=== PATIENT | female | born 1985 | race Caucasian/White ===

== ENCOUNTER → 2017-03-11 | Outpatient (CLI) | payer MEDICAID ==
--- NOTE | 2017-03-11 12:51 | RADIOLOGY REPORT (SQ) ---
EXAM DESCRIPTION: FOOT RIGHT COMPLETE COMPLETED DATE/TIME: 03/11/2017 12:40 pm REASON FOR STUDY: SPRAIN OF UNSP. LIGAMENT OF RT ANKLE, /RT FOOT S93.401A SPRAIN OF UNSPECIFIED LIG AMENT OF RIGHT ANKLE, INIT S93.601A UNSPECIFIED SPRAIN OF RIGHT FOOT, INITIAL ENCOUNTER COMPARISON: None. NUMBER OF VIEWS: Three views. TECHNIQUE: AP, lateral and oblique radiographic images acquired of the right foot. LIMITATIONS: None. FINDINGS: MINERALIZATION: Normal. BONES: No acute fracture or dislocation. No worrisome bone lesions. JOINTS: No effusions. SOFT TISSUES: No soft tissue swelling. No foreign body. OTHER: No other significant finding. IMPRESSION: NEGATIVE STUDY OF THE RIGHT FOOT. NO RADIOGRAPHIC EVIDENCE OF ACUTE INJURY. TECHNICAL DOCUMENTATION: JOB ID: [id number] [employer]- All Rights Reserved
--- NOTE | 2017-03-11 12:51 | RADIOLOGY REPORT (SQ) ---
EXAM DESCRIPTION: ANKLE RIGHT COMPLETE COMPLETED DATE/TIME: 03/11/2017 12:39 pm REASON FOR STUDY: SPRAIN OF UNSP. LIGAMENT OF RT ANKLE, /RT FOOT S93.401A SPRAIN OF UNSPECIFIED LIG AMENT OF RIGHT ANKLE, INIT S93.601A UNSPECIFIED SPRAIN OF RIGHT FOOT, INITIAL ENCOUNTER COMPARISON: None. NUMBER OF VIEWS: Three views. TECHNIQUE: AP, lateral, and oblique radiographic images acquired of the right ankle. LIMITATIONS: None. FINDINGS: MINERALIZATION: Normal. BONES: No acute fracture or dislocation. No worrisome bone lesions. JOINTS: No effusions. SOFT TISSUES: No soft tissue swelling. No foreign body. OTHER: No other significant finding. IMPRESSION: NEGATIVE STUDY OF THE RIGHT ANKLE. NO RADIOGRAPHIC EVIDENCE OF ACUTE INJURY. TECHNICAL DOCUMENTATION: JOB ID: [id number] [employer]- All Rights Reserved
== END ==
LOC: OD 12:04
PROVIDERS: ATTEND Physician Assistant
DX: S93.401A Sprain of unspecified ligament of right ankle, initial encounter (principal); S93.601A Unspecified sprain of right foot, initial encounter; X50.1XXA Overexertion from prolonged static or awkward postures, initial encounter; Y93.9 Activity, unspecified; Y92.9 Unspecified place or not applicable; Y99.9 Unspecified external cause status

== ENCOUNTER 2018-11-09 10:30 | Emergency (ER) | payer MEDICAID ==
--- NOTE | 2018-11-09 11:24 | ER Document Report ---
ED General - General Chief Complaint: Vaginal Bleeding Stated Complaint: VAGINAL BLEEDING Time Seen by Provider: 11/09/18 11:14 Mode of Arrival: Ambulatory Information source: Patient Notes: Patient presents emergency department with complaints of heavy vaginal bleeding for the past 5 days. Reports she had her menses approximately 2 weeks ago. She started bleeding again this Tuesday. Reports she is going through a tampon pantiliner almost every hour. Denies fever vomiting diarrhea. Denies pain with void. Patient reports this has never happened to her before. Denies abdominal pain. Reports that when she woke up this morning the bleeding had tapered off but she contacted her provider and they told her to come to the emergency department. TRAVEL OUTSIDE OF THE [place] IN LAST 30 DAYS: No - HPI Onset: Other - tuesday Onset/Duration: Persistent Quality of pain: No pain Associated symptoms: None Exacerbated by: Denies Relieved by: Denies Similar symptoms previously: No Recently seen / treated by doctor: No - Related Data Allergies/Adverse Reactions: No Known Allergies Allergy (Verified 11/09/18 10:31) Past Medical History - General Information source: Patient Last Menstrual Period: 2 weeks ago - Social History Smoking Status: Unknown if Ever Smoked Cigarette use (# per day): Yes Chew tobacco use (# tins/day): No Frequency of alcohol use: None Drug Abuse: None Lives with: Family Family History: Reviewed & Not Pertinent Patient has suicidal ideation: No Patient has homicidal ideation: No - Past Medical History Cardiac Medical History: Reports: Hx Hypertension Renal/ Medical History: Denies: Hx Peritoneal Dialysis Past Surgical History: Reports: Hx Section, Hx Tubal Ligation Review of Systems - Review of Systems Notes: Review HPI for review of systems., All other systems negative Physical Exam - Vital signs Vitals: Temp Pulse Resp BP Pulse Ox 98.2 F 87 14 153/94 H 98 11/09/18 10:34 11/09/18 10:34 11/09/18 10:34 11/09/18 10:34 11/09/18 10:34 - Notes Notes: PHYSICAL EXAMINATION: GENERAL: Well-appearing and in no acute distress HEAD: Atraumatic, normocephalic. EYES: Pupils equal round extraocular movements intact, sclera anicteric, conjunctiva are normal. ENT: nares patent, Moist mucous membranes. NECK: Normal range of motion, supple without lymphadenopathy LUNGS: CTAB and equal. No wheezes rales or rhonchi. HEART: Regular rate and rhythm without murmurs ABDOMEN: Soft, no tenderness. No guarding, no rebound BACK; Denies pain EXTREMITIES: Normal range of motion, NEUROLOGICAL: Cranial nerves grossly intact. PSYCH: Normal mood, normal affect. SKIN: Warm, Dry, normal turgor, no rashes or lesions noted Course - Re-evaluation Re-evalutation: 11/09/18 13:05 Still waiting for ultrasound. Patient reports she is bleeding more. 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 Labs unremarkable. Discussed this with patient. 11/09/18 13:09 Patient has decided to leave. Ultrasound still not done. Patient was warned of the risk of leaving unsure of why she is having such heavy bleeding. She verbalized understanding The patient has decided not to proceed with further recommended testing or treatment to determine the cause of their symptoms. The risks and alternatives to the recommendations were discussed and the patient was understanding. The patient appears clinically to have the capacity to make this decision. Patient was instructed that he/she could return to the emergency department at any time to complete the testing treatment. - Vital Signs Vital signs: Temp Pulse Resp BP Pulse Ox 98.0 F 82 18 124/86 H 100 11/09/18 13:13 11/09/18 13:13 11/09/18 13:13 11/09/18 13:13 11/09/18 13:13 - Laboratory Result Diagrams: 11/09/18 11:41 11/09/18 11:41 Laboratory results interpreted by me: 11/09/18 11/09/18 11/09/18 11:41 11:41 11:41 WBC 12.0 H MCH 26.8 L RDW 15.3 H Carbon Dioxide 31 H Urine Blood LARGE H Discharge - Discharge Clinical Impression: Vaginal bleeding Condition: Stable Disposition: AGAINST MEDICAL ADVICE Instructions: Vaginal Bleeding ([facility]) Additional Instructions: *You have been evaluated for vaginal bleeding *Monitor the bleeding, return if your are having increased bleeding, 1 kotex pad per hour for several hours. *Follow up with your APPRENTICE FUNERAL DIRECTOR for recheck and Ultra sound as indicated *Avoid sexual intercourse until follow up *Return to ED for worsening condition, changes, needs, weak, dizzy Monitor your blood pressure. Your blood pressure was elevated today. This may be because you were anxious, in pain or because you need medication. It is important to follow up with your primary care provider for full evaluation. Forms: Elevated Blood Pressure
[2018-11-09 11:58] LABS: ABSOLUTE BASOPHILS # (AUTO) 0.1 10^3/uL (0.0-0.2); ABSOLUTE EOSINOPHILS # (AUTO) 0.1 10^3/uL (0.0-0.6); ABSOLUTE LYMPHOCYTES (AUTO) 4.1 10^3/uL (0.5-4.7); ABSOLUTE MONOCYTES (AUTO) 0.7 10^3/uL (0.1-1.4); ABSOLUTE NEUT (AUTO) 7.1 10^3/uL (1.7-8.2); BASOPHILS % (AUTO) 0.5 % (0-2); EOSINOPHILS % (AUTO) 0.8 % (0-6); HEMATOCRIT 37.8 % (36.0-47.0); HEMOGLOBIN 12.3 g/dL (12.0-15.5); LYMPHOCYTES % (AUTO) 34.1 % (13-45); MEAN CORPUSCULAR HEMOGLOBIN 26.8 pg (27.0-33.4); MEAN CORPUSCULAR HGB CONC 32.6 g/dL (32.0-36.0); MEAN CORPUSCULAR VOLUME 82 fl (80-97); MONOCYTES % (AUTO) 5.6 % (3-13); PLATELET COUNT 272 10^3/uL (150-450); RED CELL DISTRIBUTION WIDTH 15.3 % (11.5-14.0); TOTAL CELLS COUNTED % (AUTO) 100 %
[2018-11-09 12:15] LABS: ALANINE AMINOTRANSFERASE 25 U/L (9-52); ALBUMIN 4.2 g/dL (3.5-5.0); ALKALINE PHOSPHATASE 73 U/L (38-126); ANION GAP 8 (5-19); ASPARTATE AMINO TRANSFERASE 19 U/L (14-36); BILIRUBIN,DIRECT 0.2 mg/dL (0.0-0.4); BILIRUBIN,TOTAL 0.2 mg/dL (0.2-1.3); BLOOD UREA NITROGEN 11 mg/dL (7-20); CARBON DIOXIDE 31 mmol/L (22-30); CHLORIDE 102 mmol/L (98-107); GLUCOSE 95 mg/dL (75-110); SODIUM 140.7 mmol/L (137-145); TOTAL PROTEIN 7.6 g/dL (6.3-8.2)
[2018-11-09 12:17] LABS: APPEARANCE,URINE CLEAR; BILIRUBIN,URINE NEGATIVE (NEGATIVE); GLUCOSE, URINE NEGATIVE (NEGATIVE); KETONES,URINE NEGATIVE (NEGATIVE); LEUKOCYTE ESTERASE,URINE NEGATIVE (NEGATIVE); NITRITE,URINE NEGATIVE (NEGATIVE); PROTEIN,URINE NEGATIVE (NEGATIVE); UROBILINOGEN,URINE NEGATIVE mg/dL (<2.0)
[2018-11-09 12:19] LABS: COLOR,URINE RED
[2018-11-09 13:15] VITALS: BP 124/86
== END 2018-11-09 13:15 | disposition left against medical advice (07) ==
LOC: ER 10:30
DX: N93.8 Other specified abnormal uterine and vaginal bleeding (principal); I10 Essential (primary) hypertension; Z98.51 Tubal ligation status
CPT/HCPCS: 36415; 80053; 81001; 81025; 85025; 99284

== ENCOUNTER → 2019-02-15 | Outpatient (CLI) | payer MEDICAID | LOC: OD 12:13 | PROVIDERS: ATTEND Surgery | DX: E66.01 Morbid (severe) obesity due to excess calories (principal); Z72.0 Tobacco use | CPT/HCPCS: 36415; G0480; 80323 ==

== ENCOUNTER 2020-05-26 18:22 | Emergency (ER) | payer MEDICAID ==
[2020-05-26] MEDS ORDERED: KETOROLAC TROMETHAMINE INJ/PF 30 MG/1 ML SDV IM ONE (20:09)
--- NOTE | 2020-05-26 20:13 | ER Document Report ---
ED Extremity Problem, Lower - General Chief Complaint: Leg Injury Stated Complaint: RIGHT LEG PAIN Time Seen by Provider: 05/26/20 20:05 Primary Care Provider: KAREEM WATTS MD [Primary Care Provider] - Follow up as needed Mode of Arrival: Ambulatory Information source: Patient TRAVEL OUTSIDE OF THE [place] IN LAST 30 DAYS: No - HPI Patient complains to provider of: Injury Location: Knee, Leg Notes: Patient with complaints of right posterior knee/hamstring pain. The patient states that she was standing up and twisting when she felt a pop in the right posterior knee that went up her hamstring/mid thigh. No trauma or fall. No fever. No redness. She denies numbness, tingling, weakness. No chest pain or shortness of breath. No abdominal pain. No nausea, vomiting, diarrhea. Patient is on Suboxone. She states the pain is moderate to severe, constant, worse with movement and ambulation, better with rest. No other injuries or complaints at this time. - Related Data Allergies/Adverse Reactions: No Known Allergies Allergy (Verified 05/26/20 19:57) Home Medications: FLEXIRIL. CONCERTA. SUBOXONE. AMATEXA Past Medical History - Social History Smoking Status: Current Every Day Smoker Frequency of alcohol use: None Drug Abuse: None Family History: Reviewed & Not Pertinent - Past Medical History Cardiac Medical History: Reports: Hx Hypertension Renal/ Medical History: Denies: Hx Peritoneal Dialysis Past Surgical History: Reports: Hx Section, Hx Tubal Ligation Review of Systems - Review of Systems -: Yes All other systems reviewed and negative Physical Exam - Vital signs Vitals: Temp Pulse Resp BP Pulse Ox 98.5 F 101 H 20 141/96 H 98 05/26/20 19:01 05/26/20 19:01 05/26/20 19:01 05/26/20 19:01 05/26/20 19:01 - Notes Notes: GENERAL: alert, cooperative, nontoxic, no distress. HEAD: normocephalic, atraumatic EYES: conjunctiva pink without discharge, no external redness or swelling. EARS: no external swelling, no external redness NOSE: atraumatic, no external swelling MOUTH/THROAT: mucous membranes moist and pink NECK: soft, supple, full range of motion, no meningismus. CHEST: no distress, lungs clear and equal throughout. No wheezing, rales, rhonchi. CARDIAC: regular rate and rhythm, no murmur, normal capillary refill, normal pulses. BACK: full range of motion, no CVA tenderness. EXTREMITIES: full range of motion of all extremities. No redness, no swelling. Tenderness to palpation to the right medial and posterior knee as well as the right distal hamstring area. No bruising, no hematoma. No redness or swelling. Normal pulse and sensation distally. No obvious ligament stability. Normal anterior and posterior drawer. NEURO: alert and oriented 3, no focal deficits, full range of motion of all extremities. PYSCH: appropriate mood, affect. Patient is cooperative. SKIN: pink, warm, dry, no rash. Course - Re-evaluation Re-evalutation: 05/26/20 21:38 Patient resting comfortably at this time. Have gone over the results with the patient. Questions have been answered. X-rays negative. Patient requesting crutches. Patient is nontoxic-appearing with stable vitals. Here with complaints of right knee/hamstring pain. She states that she twisted and felt a pop in her medial knee/hamstring area. No fever. On exam she had tenderness to palpation along the medial knee in the distal hamstring. There is no redness, ecchymosis. Normal pulse and sensation distally. No redness or signs of infection. X-rays negative for acute findings. Patient declined Addy wrap or knee immobilizer. She states that she would like some crutches. Patient will be discharged home with a prescription for Toradol, she is currently on Suboxone. She instructed t o rest, ice, elevate. Follow-up with orthopedics if she continues to have pain, sooner for worsening pain, fever, numbness, tingling, weakness, redness, any further concerns. - Vital Signs Vital signs: Temp Pulse Resp BP Pulse Ox 98.5 F 101 H 20 141/96 H 98 05/26/20 19:01 05/26/20 19:01 05/26/20 19:05/26/20 19:05/26/20 19:01 - Laboratory Results Critical Laboratory Results Reviewed: No Critical Results - Radiology Results Critical Radiology Results Reviewed: No Critical Results Discharge - Discharge Clinical Impression: Sprain of right knee Qualifiers: Encounter type: initial encounter Involved ligament of knee: unspecified ligament Qualified Code(s): S83.91XA - Sprain of unspecified site of right knee, initial encounter Condition: Stable Disposition: HOME, SELF-CARE Instructions: Use of Crutches ([facility]), Ice & Elevation ([facility]), Sprained Knee ([facility]) Additional Instructions: Take medications as needed. You may also take Tylenol as needed for pain. Rest, ice, elevate. Use crutches as needed for comfort. Follow-up with Ortho if not better in the next 5 to 7 days, sooner for worsening pain, fever, redness, numbness, tingling, weakness, any further concerns. Prescriptions: Ketorolac Tromethamine [Toradol 10 mg Tablet] 10 mg PO Q6HP PRN #21 tablet PRN Reason: Forms: Elevated Blood Pressure Referrals: KAREEM WATTS MD [Primary Care Provider] - Follow up as needed TAURUS FARRIS DO [ACTIVE STAFF] - Follow up as needed
--- NOTE | 2020-05-26 21:13 | RADIOLOGY REPORT (SQ) ---
EXAM DESCRIPTION: XR KNEE 4 OR MORE VIEWS COMPLETED DATE/TME: 05/26/2020 20:31 CLINICAL HISTORY: 34 years, Female, pain, felt a pop COMPARISON: None. TECHNIQUE: Four views of the right knee. FINDINGS: No evidence for fracture dislocation. No suspicious bone or joint space abnormality. No suspicious suprapatellar joint effusion. IMPRESSION: Unremarkable right knee series.
[2020-05-26 21:45] VITALS: BP 140/89
== END 2020-05-26 21:42 | disposition home or self-care (01) ==
LOC: ER 18:22
DX: S83.91XA Sprain of unspecified site of right knee, initial encounter (principal); X50.1XXA Overexertion from prolonged static or awkward postures, initial encounter; F17.200 Nicotine dependence, unspecified, uncomplicated; I10 Essential (primary) hypertension; Z79.899 Other long term (current) drug therapy
CPT/HCPCS: 99284; 96372; 73564; J1885